=== PATIENT | female | born 1945 | race Caucasian/White ===

== ENCOUNTER → 2018-03-11 | Outpatient (CLI) | payer OTHER ==
[~2018-03-11] MED LIST: BENZONATATE100 MG; LOSARTAN-HCTZ1 EAC1; NORCO 5-325 TA1 EACH PO; ZPAK
== END ==
LOC: NUC 05:50
DX: Z13.820 Encounter for screening for osteoporosis (principal); M85.89 Other specified disorders of bone density and structure, multiple sites; Z78.0 Asymptomatic menopausal state

== ENCOUNTER 2018-09-08 22:46 | Inpatient (IN) | payer OTHER ==
[~2018-09-08] VITALS: Ht 162.6 cm; Wt 88.8 kg
--- NOTE | ~2018-09-08 | EKG ---
[address] [place] [address] ELECTROCARDIOGRAM REPORT Name: VERONICA ESPITIA Room #: 449-I ADM IN .R.#: [id number] Admission: 09/09/18 Attend Phys: Steve Aponte MD Discharge: Date of : 49 Report #: [id number] THIS REPORT FOR: //name// [facility] ED Test Date: 2018-09-08 Test Time: 23:19:58 Pat Name: VERONICA BERMEO Department: Room: [facility] Gender: F Wildlife [employer] Operator: EULALIA : 1945 Requested By: Nixon Mascorro Order Number: [id number] MD: Arnel Johnson Measurements Intervals [place] Rate: 76 P: 52 MN: 167 QRS: -5 QRSD: 91 T: 30 QT: 398 QTc: 448 Interpretive Statements Sinus rhythm Borderline low voltage, extremity leads Baseline wander in lead(s) V2 Compared to ECG 12/30/2012 12:09:44 Atrial premature complex(es) no longer present Electronically Signed On 09-09-2018 8:06:51 CDT by Arnel Johnson [email or web address] <ELECTRONICALLY SIGNED> By: Arnel Johnson MD, FAC 09/09/18 0806 [id number] 2319 Arnel Johnson MD, [facility] /EPI
[2018-09-08 22:58] VITALS: BP 155/78
[2018-09-08 23:12] LABS: URINE BILIRUBIN NEGATIVE (Negative); URINE BLOOD NEGATIVE (Negative); URINE CLARITY CLEAR; URINE COLOR YELLOW; URINE GLUCOSE-RANDOM* NEGATIVE (Negative); URINE KETONES NEGATIVE (Negative); URINE LEUKOCYTES-REFLEX NEGATIVE (Negative); URINE NITRITE-REFLEX NEGATIVE (Negative); URINE PROTEIN (DIPSTICK) NEGATIVE (Negative); URINE SPECIFIC GRAVITY >= 1.030 (1.005-1.035); URINE UROBILINOGEN 0.2 E.U./dl (0.2-1.0)
[2018-09-08 23:53] LABS: ABSOLUTE NEUTROPHILS 3.1 thou/uL (1.4-8.2); BASOPHILS 0.8 % (0.0-2.0); EOSINOPHILS 1.9 % (0.0-3.0); HEMATOCRIT 34.3 % (37.0-47.0); HEMOGLOBIN 12.1 gm/dL (12.0-15.0); LYMPHOCYTES 10.2 % (24.0-44.0); MCHC 35.1 g/dL (28.0-37.0); MCV 91.3 fL (80.0-100.0); MONOCYTES 11.1 % (1.0-8.0); PLATELET COUNT 84 thou/uL (150-400); RBC 3.76 mil/uL (4.20-5.00); RDW 14.6 % (10.5-14.5)
[2018-09-09 00:04] LABS: CALCIUM 9.3 mg/dL (8.5-10.1); CREATININE 1.3 mg/dL (0.6-1.0)
[2018-09-09 00:09] LABS: ALBUMIN 3.7 g/dL (3.4-5.0); TOTAL BILIRUBIN 1.8 mg/dL (<0.1-1.0); TOTAL PROTEIN 7.6 g/dL (6.4-8.2)
[2018-09-09] MEDS ORDERED: BUSPIRONE HCL10 MG PO (01:56)
[2018-09-09 03:34] VITALS: BP 100/47
[2018-09-09 04:16] VITALS: BP 114/63
[2018-09-09] MEDS ORDERED: CYMBALTA30 MG PO (06:21)
[2018-09-09 07:32] VITALS: BP 109/65
[2018-09-09 12:38] VITALS: BP 105/70
[2018-09-09 19:31] VITALS: BP 134/93
[2018-09-09 19:49] VITALS: BP 114/67
[2018-09-10 04:34] VITALS: BP 124/69
[2018-09-10 07:12] VITALS: BP 112/69
[2018-09-10] MEDS ORDERED: VENTOLIN HFA 1818 GM INH (07:56)
[2018-09-10] MEDS ORDERED: CEFDINIR300 MG PO (07:56)
[2018-09-10 11:31] VITALS: BP 112/69
== END 2018-09-10 14:13 | disposition home or self-care (01) | DRG 682 ==
LOC: ER 22:46 → EROBS 09-09 03:06 → 4W 09-09 03:06 → ENTRNSPT 09-10 13:58 → EDTRNSPTSTS 09-10 14:07 → 4W 09-10 14:13
PROVIDERS: Emergency Medicine
DX: N17.9 Acute kidney failure, unspecified (principal); J18.9 Pneumonia, unspecified organism; R07.81 Pleurodynia; I10 Essential (primary) hypertension; Z90.49 Acquired absence of other specified parts of digestive tract; Z98.51 Tubal ligation status; Z88.2 Allergy status to sulfonamides; Z88.5 Allergy status to narcotic agent; Z91.041 Radiographic dye allergy status
CPT/HCPCS: 10040

== ENCOUNTER 2018-09-11 23:30 | Inpatient (IN) | payer OTHER ==
[~2018-09-11] VITALS: Ht 167.6 cm; Wt 103.3 kg
--- NOTE | ~2018-09-11 | P ---
[facility] [address] PROCEDURE REPORT Name: VERONICA ESPITIA Room #: 427-P [facility] IN M.R.#: [id number] Admission: 09/12/18 Attend Phys: Steve Aponte MD Discharge: Date of : 49 Report #: [id number] THIS REPORT FOR: //name// CC: Ryan Aponte MD DATE OF SERVICE: 09/13/2018 PROCEDURE PERFORMED: Upper endoscopy with bleeding control. HISTORY OF PRESENT ILLNESS: The patient is a 73-year-old female with recent melena and bright red blood per rectum, was admitted with hemoglobin of 10.4, this is down from 2 days ago when it was in the 12 range. She reportedly had an EGD and colonoscopy done by Dr. Romero in 2010 that showed erosive duodenitis, mild antral gastritis, esophageal nodule and a colon polyp was removed that was negative for varices at that time. The patient has a history of hepatitis C and cirrhosis. She reportedly was treated for hepatitis C successfully by Dr. Ryan Mccormack approximately 3-4 years ago. She does complain of mid epigastric abdominal pain. She denies any nausea or vomiting or dysphagia. She denies any hematemesis. She underwent a bleeding scan yesterday, which was negative. Plan is for EGD with possible unprepped colonoscopy depending on upper endoscopy findings today. DESCRIPTION OF PROCEDURE: The risks and benefits of the procedure were explained to the patient, those risks including but not limited to bleeding, perforation, the risk of sedation. She understood these risks and gave informed consent. Sedation was given using propofol per anesthesia. Next, using a standard Olympus upper endoscope, the scope was placed in the patient's mouth and advanced under direct vision through the esophagus, stomach and into the second portion of the duodenum. The larynx was normal in appearance. The upper esophagus was normal in appearance as well as mid esophagus. In the distal esophagus, there was evidence of grade 1-2 varices. There was no stigmata of bleeding. No red aileen signs were noted. There was some small area of esophagitis at the GE junction. No bleeding. Overall, the gastric mucosa was normal. There was no evidence of blood. The pylorus was normal and patent. In the duodenal bulb; however, there was a large duodenal ulcer, bulb ulcer. This was approximately 2.5 to 3 cm in length and an adjacent ulcer was also noted about 1.5 cm. In the large ulcer, there was bright red blood, consistent with active bleeding. This was minimal. I was able to advance the scope into the second portion of the duodenum, which two small clean white based ulcers were noted. No evidence of bleeding. The scope was then brought back up into the distal duodenal bulb. Multiple washings and aspirations were performed. There was an area of friability with a possible visible vessel. I injected this with [address] [id number] PROCEDURE REPORT Name: VERONICA ESPITIA Room #: 427-P [facility] IN ..#: [id number] Admission: 09/12/18 Attend Phys: Steve Aponte MD Discharge: Date of : 49 Report #: [id number] 1 mL of epinephrine. I then proceeded with a bipolar cautery. There was no evidence of bleeding after cauterization and epinephrine injection. No other areas with active bleeding. No other visible vessel was noted. There is a chronic appearing large duodenal ulcer. At this point, the scope was then brought back up into the patient's stomach, which was essentially negative. I then evaluated the distal esophagus again, there was a small amount of bright red blood in the distal esophagus; however, this came from likely scope passing through the area of esophagitis. Again, there was evidence of esophageal varices, but no stigmata of bleeding from esophageal varices. At this point, the scope was then withdrawn and the procedure terminated. The patient tolerated the procedure well. IMPRESSION: 1. Grade 2 esophageal varices. No stigmata of bleeding. 2. Mild grade A erosive esophagitis. 3. Large duodenal bulb ulcer with active bleeding, status post cautery and epinephrine injection. No further bleeding noted. A second duodenal bulb ulcer noted, no active bleeding. 4. Two clean white based ulcers in the second portion of the duodenum. RECOMMENDATIONS: 1. We will start clear liquids today. 2. Start Protonix drip. 3. Carafate 4 times a day. 4. Continue to monitor hemoglobin closely. 5. We will check a stool H. pylori antigen. Thank you for allowing me to participate in her care. <ELECTRONICALLY SIGNED> By: Tyler Salas MD 09/14/18 0933 1035 0058 Tyler Salas MD /nt
[~2018-09-11 23:30] MED LIST changes: +BUSPIRONE HCL10 MG PO; +CEFDINIR300 MG PO; +CYMBALTA30 MG PO; +VENTOLIN HFA 1818 GM INH
[2018-09-11 23:36] VITALS: BP 151/77
[2018-09-12] VITALS (8 sets, daily range): BP systolic 118–137; BP diastolic 46–83
[2018-09-12 00:11] LABS: ABSOLUTE NEUTROPHILS 6.5 thou/uL (1.4-8.2); BASOPHILS 1.1 % (0.0-2.0); EOSINOPHILS 2.8 % (0.0-3.0); HEMATOCRIT 28.9 % (37.0-47.0); HEMOGLOBIN 10.4 gm/dL (12.0-15.0); LYMPHOCYTES 11.5 % (24.0-44.0); MCH 32.4 pg (26.0-34.0); MCHC 36.1 g/dL (28.0-37.0); MCV 89.9 fL (80.0-100.0); MONOCYTES 8.3 % (1.0-8.0); PLATELET COUNT 178 thou/uL (150-400); POLYS 76.3 % (36.0-66.0); RBC 3.21 mil/uL (4.20-5.00); RDW 14.4 % (10.5-14.5); WBC 8.5 thou/uL (4.0-11.0)
[2018-09-12 00:17] LABS: CALCIUM 8.2 mg/dL (8.5-10.1); CREATININE 1.3 mg/dL (0.6-1.0)
[2018-09-12 00:46] LABS: DIRECT BILIRUBIN 0.3 mg/dL (<0.1-0.3); TOTAL BILIRUBIN 1.8 mg/dL (<0.1-1.0); TOTAL PROTEIN 6.5 g/dL (6.4-8.2)
[2018-09-12 00:56] LABS: APTT 26.4 Seconds (24.5-32.8); INR 1.2
[2018-09-13 04:05] VITALS: BP 140/85
[2018-09-13 07:50] VITALS: BP 123/64
[2018-09-13 16:15] LABS: HEMATOCRIT 21.6 % (37.0-47.0); MCHC 34.9 g/dL (28.0-37.0); MCV 91.5 fL (80.0-100.0); RBC 2.36 mil/uL (4.20-5.00); RDW 14.5 % (10.5-14.5); WBC 2.5 thou/uL (4.0-11.0)
[2018-09-13 16:18] LABS: HEMOGLOBIN 7.6 gm/dL (12.0-15.0)
[2018-09-13 19:25] VITALS: BP 108/47
[2018-09-14 04:51] VITALS: BP 97/46
[2018-09-14 05:10] LABS: HEMATOCRIT 20.9 % (37.0-47.0); HEMOGLOBIN 7.3 gm/dL (12.0-15.0); MCH 32.1 pg (26.0-34.0); MCV 91.9 fL (80.0-100.0); RBC 2.27 mil/uL (4.20-5.00); RDW 14.8 % (10.5-14.5); WBC 2.1 thou/uL (4.0-11.0)
[2018-09-14 07:10] VITALS: BP 112/56
[2018-09-14 10:05] LABS: CALCIUM 8.1 mg/dL (8.5-10.1); CREATININE 1.1 mg/dL (0.6-1.0); POTASSIUM 3.7 mmol/L (3.5-5.1)
[2018-09-14 12:44] LABS: HEMOGLOBIN 7.6 gm/dL (12.0-15.0)
[2018-09-14 12:46] LABS: HEMATOCRIT 21.7 % (37.0-47.0); MCV 91.3 fL (80.0-100.0); PLATELET COUNT 75 thou/uL (150-400); RBC 2.37 mil/uL (4.20-5.00); RDW 14.4 % (10.5-14.5)
[2018-09-14 12:51] LABS: WBC 1.9 thou/uL (4.0-11.0)
[2018-09-14 13:16] LABS: ABSOLUTE NEUTROPHILS 1.5 thou/uL (1.4-8.2)
[2018-09-14 14:43] VITALS: BP 112/56
[2018-09-14 15:27] VITALS: BP 114/63; BP 119/93
[2018-09-14 19:45] VITALS: BP 139/49
[2018-09-15 04:30] VITALS: BP 126/69
[2018-09-15 06:54] LABS: MCH 31.2 pg (26.0-34.0); RBC 2.61 mil/uL (4.20-5.00)
[2018-09-15 06:57] LABS: HEMATOCRIT 23.6 % (37.0-47.0); HEMOGLOBIN 8.1 gm/dL (12.0-15.0); MCHC 34.5 g/dL (28.0-37.0); MCV 90.5 fL (80.0-100.0); RDW 14.5 % (10.5-14.5)
[2018-09-15 07:15] VITALS: BP 119/63
[2018-09-15 07:30] LABS: WBC 1.9 thou/uL (4.0-11.0)
[2018-09-15 16:05] VITALS: BP 135/71
[2018-09-15 20:05] VITALS: BP 136/68
[2018-09-16 03:30] VITALS: BP 103/59
[2018-09-16] MEDS ORDERED: PROPRANOLOL 20M20 M1 PO (10:39)
[2018-09-16] MEDS ORDERED: PROTONIX40 M1 PO (10:39)
[2018-09-16 11:39] VITALS: BP 103/59
== END 2018-09-16 14:21 | disposition home or self-care (01) | DRG 871 ==
LOC: ER 23:30 → EROBS 09-12 00:50 → 4E 09-12 00:50 → ENTRNSPT 09-16 13:49 → EDTRNSPTSTS 09-16 13:50 → 4E 09-16 14:21
PROVIDERS: Emergency Medicine; Family Medicine; Specialist
DX: A41.9 Sepsis, unspecified organism (principal); K26.4 Chronic or unspecified duodenal ulcer with hemorrhage; J18.9 Pneumonia, unspecified organism; N17.9 Acute kidney failure, unspecified; K22.10 Ulcer of esophagus without bleeding; I85.10 Secondary esophageal varices without bleeding; I10 Essential (primary) hypertension; D64.9 Anemia, unspecified; K64.9 Unspecified hemorrhoids; K74.60 Unspecified cirrhosis of liver; F32.9 Major depressive disorder, single episode, unspecified; D72.819 Decreased white blood cell count, unspecified; D69.6 Thrombocytopenia, unspecified; B18.2 Chronic viral hepatitis C; Z90.49 Acquired absence of other specified parts of digestive tract; Z79.899 Other long term (current) drug therapy; Z88.5 Allergy status to narcotic agent; Z86.010 Personal history of colon polyps; Z88.2 Allergy status to sulfonamides; Z91.041 Radiographic dye allergy status; Z91.040 Latex allergy status
CPT/HCPCS: 10084; 62110; 62900; 70005

== ENCOUNTER → 2018-10-22 | Outpatient (CLI) | payer OTHER ==
[~2018-10-22] MED LIST changes: +PROPRANOLOL 20M20 M1 PO; +PROTONIX40 M1 PO
== END ==
LOC: RAD 16:06
DX: S09.92XS Unspecified injury of nose, sequela (principal); X58.XXXD Exposure to other specified factors, subsequent encounter

== ENCOUNTER → 2019-03-25 | Outpatient (CLI) | payer OTHER | LOC: CAT 13:12 | DX: Z13.6 Encounter for screening for cardiovascular disorders (principal); E78.00 Pure hypercholesterolemia, unspecified; I25.10 Atherosclerotic heart disease of native coronary artery without angina pectoris ==

== ENCOUNTER 2019-04-04 10:43 | Emergency (ER) | payer OTHER ==
[~2019-04-04] VITALS: Ht 162.6 cm; Wt 77.1 kg
[2019-04-04 10:44] VITALS: BP 124/69
[2019-04-04] MEDS ORDERED: AUGMENTIN 875-1 EACH PO (11:09)
== END 2019-04-04 11:18 | disposition home or self-care (01) ==
LOC: ER 10:43
DX: S51.852A Open bite of left forearm, initial encounter (principal); L03.114 Cellulitis of left upper limb; W55.01XA Bitten by cat, initial encounter; Y93.89 Activity, other specified; Y92.89 Other specified places as the place of occurrence of the external cause; Y99.8 Other external cause status; I10 Essential (primary) hypertension; Z90.49 Acquired absence of other specified parts of digestive tract; Z88.2 Allergy status to sulfonamides; Z88.5 Allergy status to narcotic agent; Z91.041 Radiographic dye allergy status; Z91.040 Latex allergy status

== ENCOUNTER → 2019-12-08 | Outpatient (CLI) | payer OTHER ==
[~2019-12-08] MED LIST changes: +AUGMENTIN 875-1 EACH PO
== END ==
LOC: SJCVC 12:24
DX: I10 Essential (primary) hypertension (principal); E78.5 Hyperlipidemia, unspecified; M79.605 Pain in left leg; F41.9 Anxiety disorder, unspecified; Z79.899 Other long term (current) drug therapy; Z90.49 Acquired absence of other specified parts of digestive tract

== ENCOUNTER → 2019-12-24 | Outpatient (CLI) | payer OTHER | END | disposition home or self-care (01) | LOC: SJCVCIMAG 09:31 | DX: M79.605 Pain in left leg (principal) ==